=== PATIENT | female | born 1985 | race Two or more races ===

== ENCOUNTER 2019-10-05 22:55 | Emergency (ER) | payer BC, MEDICAID ==
[~2019-10-05] VITALS: Ht 165.1 cm; Wt 60.5 kg
[~2019-10-05 22:55] MED LIST: CYCL-1 PO
[2019-10-06] MEDS ORDERED: HYDROcodone/acetaminophen 5mg/325mg tablet PO ONE (00:30)
[2019-10-06] MEDS ORDERED: LIDOcaine 40mg/ml topical solution MM ONE (01:05)
[2019-10-06] MEDS ORDERED: LIDOcaine 4% (40 mg/ml) topical solution 50ml MM ONE (01:10)
[2019-10-06] MEDS ORDERED: HYDR-3965 PO (01:21)
[2019-10-06] MEDS ORDERED: CEPH500C5 PO (01:21)
[2019-10-06] MEDS ORDERED: CefTRIAXone/D5W-Rocephin 1gm 50 ML IV ONE (01:25)
--- NOTE | 2019-10-06 02:00 | NUR ---
Dr. Lorenzo at bedside to drain the abscess. Topical lidocaine applied for 15 min prior. Pt tolerated procedure well.
[2019-10-06 02:43] VITALS: BP 102/62
== END 2019-10-06 02:50 | disposition home or self-care (01) ==
LOC: ER 22:55
DX: L03.114 Cellulitis of left upper limb (principal); G89.29 Other chronic pain; Z98.51 Tubal ligation status; Z79.2 Long term (current) use of antibiotics
CPT/HCPCS: 96365; 97597; 99284; J0696

== ENCOUNTER 2020-08-21 19:35 | Emergency (ER) | payer BC, MEDICAID ==
[~2020-08-21] VITALS: Ht 154.9 cm; Wt 45.0 kg
[~2020-08-21 19:35] MED LIST changes: +CEPH-585 PO
[2020-08-21] MEDS ORDERED: ipratropium/albuterol 3ml nebule NEB STA (20:03)
[2020-08-21] MEDS ORDERED: predniSONE 20 mg tablet PO ONE (20:05)
[2020-08-21] MEDS ORDERED: ALBU8.5H8 INH (20:05)
[2020-08-21] MEDS ORDERED: PRED20TA PO (20:05)
[2020-08-21 20:16] VITALS: BP 127/77
--- NOTE | 2020-08-21 20:28 | NUR ---
[facility] CALLED FOR PATIENT TRANSPORTATION HOME.
== END 2020-08-21 20:34 | disposition home or self-care (01) ==
LOC: ER 19:36
DX: J45.901 Unspecified asthma with (acute) exacerbation (principal); G89.29 Other chronic pain; Z98.51 Tubal ligation status; Z79.2 Long term (current) use of antibiotics; Z79.899 Other long term (current) drug therapy
CPT/HCPCS: 93005; 94640; 99283; J7512; 94760

== ENCOUNTER 2020-12-05 16:58 | Emergency (ER) | payer MEDICAID ==
[~2020-12-05] VITALS: Ht 157.5 cm; Wt 53.2 kg
[~2020-12-05 16:58] MED LIST changes: +ALBU8.5H8 INH; -CEPH-585 PO
[2020-12-05 17:12] VITALS: BP 108/62
[2020-12-05] MEDS ORDERED: TETanus/Pertussis (Acell)/Diphther VAC/PF (Tdap-Adult) 0.5ml syringe IMVAC ONE (18:40)
== END 2020-12-05 19:19 | disposition home or self-care (01) ==
LOC: ER 16:59
DX: M25.562 Pain in left knee (principal); M25.522 Pain in left elbow; J45.909 Unspecified asthma, uncomplicated; G89.29 Other chronic pain; M54.9 Dorsalgia, unspecified; V49.9XXA Car occupant (driver) (passenger) injured in unspecified traffic accident, initial encounter; Y93.89 Activity, other specified; Y92.89 Other specified places as the place of occurrence of the external cause; Y99.8 Other external cause status
CPT/HCPCS: 73080; 73564; 90471; 90715; 99284

== ENCOUNTER 2022-09-08 12:16 | Emergency (ER) | payer MEDICAID ==
[~2022-09-08] VITALS: Ht 154.9 cm; Wt 51.0 kg
[~2022-09-08 12:16] MED LIST changes: +ALBU8.5H17 INH; -ALBU8.5H8 INH
[2022-09-08 13:04] LABS: BASOPHILS # (AUTO) 0.1 X10'3 (0-0.2); BASOPHILS % (AUTO) 0.9 % (0-1); EOSINOPHILS # (AUTO) 0.4 X10'3 (0-0.9); HEMATOCRIT 42.2 % (35.0-45.0); HEMOGLOBIN 14.4 g/dl (12.0-16.0); LYMPHOCYTES # (AUTO) 1.7 X10'3 (1.1-4.8); MEAN CORPUSCULAR HEMOGLOBIN 30.5 PG (27.0-31.0); MEAN CORPUSCULAR HGB CONC 34.2 g/dL (33.0-36.5); MEAN CORPUSCULAR VOLUME 89.3 FL (78-98); MEAN PLATELET VOLUME 7.7 FL (7.4-10.4); MONOCYTES # (AUTO) 0.7 X10'3 (0-0.9); MONOCYTES % (AUTO) 9.8 % (2-12); NEUTROPHILS # (AUTO) 4.3 X10'3 (1.8-7.7); NEUTROPHILS % (AUTO) 59.3 % (42-75); PLATELET COUNT 258 X10'3 (140-440); RED BLOOD COUNT 4.72 X10'6 (4.20-5.60); RED CELL DISTRIBUTION WIDTH 12.9 % (11.5-14.5); WHITE BLOOD COUNT 7.2 X10'3 (4.5-11.0)
[2022-09-08 13:13] LABS: ALANINE AMINOTRANSFERASE 28 U/L (12-78); ALBUMIN 4.5 G/DL (3.4-5.0); ALBUMIN/GLOBULIN RATIO 1.2 (1.1-1.5); ALKALINE PHOSPHATASE 73 IU/L (46-116); ANION GAP 9 (8-16); ASPARTATE AMINO TRANSFERASE 17 U/L (10-37); BILIRUBIN,TOTAL 0.5 MG/DL (0.1-1.0); BLOOD UREA NITROGEN 10 MG/DL (7-18); BUN/CREATININE RATIO 14.5 (10.0-20.0); CALCIUM 9.2 MG/DL (8.5-10.1); CHLORIDE 103 MMOL/L (99-107); CREATININE 0.69 MG/DL (0.40-0.90); GLUCOSE 100 MG/DL (70-104); POTASSIUM 3.9 MMOL/L (3.5-5.1); SODIUM 139 MMOL/L (135-145); TOTAL CARBON DIOXIDE 26.8 MMOL/L (24-32); TOTAL PROTEIN 8.2 G/DL (6.4-8.2); eGFR > 90 ML/MIN
[2022-09-08] MEDS ORDERED: METH4TAB81 PO (14:15)
--- NOTE | 2022-09-08 15:01 | NUR ---
RN PRINTED DC PAPERWORK. PT PREPARING FOR DC
[2022-09-08 15:04] VITALS: BP 122/77
== END 2022-09-08 15:07 | disposition home or self-care (01) ==
LOC: ER 12:17
DX: R07.9 Chest pain, unspecified (principal); J45.20 Mild intermittent asthma, uncomplicated; M54.9 Dorsalgia, unspecified; Z79.899 Other long term (current) drug therapy
CPT/HCPCS: 36415; 71045; 80053; 83880; 84484; 85025; 93005; 99285